=== PATIENT | male | born 1985 | race African-American/Black ===

== ENCOUNTER 2019-07-03 13:13 | Emergency (ER) | payer OTHER ==
--- NOTE | 2019-07-03 16:04 | EDM.PDOC ---
ED HPI GENERAL MEDICAL PROBLEM - General Chief Complaint: Cardiovascular Problem Stated Complaint: RACING HEART Time Seen by Provider: 07/03/19 13:22 Source of Information: Reports: Patient History Limitations: Reports: No Limitations - History of Present Illness INITIAL COMMENTS - FREE TEXT/NARRATIVE: The patient presents with palpitations. This happened today. He had just drank a smoothy when this happened and he got lightheaded. He has no chest pain or shortness of breath. The palpitations are gone now. He has no fever, chills, cough, congestion, runny nose, abdominal pain, nausea or vomiting. He does not drink much caffeine. He does take a male enhancement supplement called testo. It has yohimbe in it and that can cause a rapid heart rate. Onset: Sudden Duration: Minutes: Improves with: Reports: None Worsens with: Reports: None Associated Symptoms: Reports: No Other Symptoms - Related Data Allergies Allergy/AdvReac Type Severity Reaction Status Date / Time No Known Allergies Allergy Verified 07/03/19 13:23 Home Meds: Home Meds . [No Known Home Meds] 07/03/19 [History] Past Medical History - Past Health History Medical/Surgical History: Denies Medical/Surgical History - Infectious Disease History Infectious Disease History: Reports: None Social & Family History - Tobacco Use Smoking Status *Q: Never Smoker - Caffeine Use Caffeine Use: Reports: None - Recreational Drug Use Recreational Drug Use: No ED ROS GENERAL - Review of Systems Review Of Systems: See Below Constitutional: Reports: No Symptoms HEENT: Reports: No Symptoms Respiratory: Reports: No Symptoms Cardiovascular: Reports: Palpitations. Denies: Chest Pain Endocrine: Reports: No Symptoms GI/Abdominal: Reports: No Symptoms : Reports: No Symptoms Musculoskeletal: Reports: No Symptoms Skin: Reports: No Symptoms ED EXAM, GENERAL - Physical Exam Exam: See Below Exam Limited By: No Limitations General Appearance: Alert, No Apparent Distress Ears: Normal External Exam Nose: Normal Inspection Throat/Mouth: Normal Inspection Neck: Normal Inspection Respiratory/Chest: No Respiratory Distress, Lungs Clear, Normal Breath Sounds Cardiovascular: Regular Rate, Rhythm, No Edema, No Murmur GI/Abdominal: Soft, Non-Tender, No Organomegaly, No Mass Back Exam: Normal Inspection Extremities: Normal Inspection EKG INTERPRETATION EKG Date: 07/03/19 Time: 13:26 Rhythm: NSR Rate (Beats/Min): 67 Dougherty: Normal P-Wave: Present QRS: Normal ST-T: Normal QT: Normal Course - Vital Signs Last Recorded V/S: Last Vital Signs Temp 97.6 F 07/03/19 13:19 Pulse 70 07/03/19 13:19 Resp 16 07/03/19 13:19 BP 139/77 07/03/19 13:19 Pulse Ox 100 07/03/19 13:19 - Orders/Labs/Meds Orders: Active Orders 24 hr Category Date Time Status Cardiac Monitoring [RC] . DIRECTED Care 07/03/19 13:52 Active EKG Documentation Completion [RC] ASDIRECTED Care 07/03/19 13:26 Active EKG 12 Lead [EK] Stat Ther 07/03/19 13:26 Ordered Labs: Laboratory Tests 07/03/19 07/03/19 Range/Units 13:52 14:15 WBC 12.01 H (4.23-9.07) K/mm3 RBC 5.19 (4.63-6.08) M/mm3 Hgb 14.7 (13.7-17.5) gm/dl Hct 43.1 (40.1-51.0) % MCV 83.0 (79.0-92.2) fl MCH 28.3 (25.7-32.2) pg MCHC 34.1 (32.2-35.5) g/dl RDW Std Deviation 39.3 (35.1-43.9) fL Plt Count 242 (163-337) K/mm3 MPV 10.1 (9.4-12.3) fl Neut % (Auto) 77.4 H (34.0-67.9) % Lymph % (Auto) 10.8 L (21.8-53.1) % Cherry % (Auto) 11.3 (5.3-12.2) % Eos % (Auto) 0.2 L (0.8-7.0) Baso % (Auto) 0.1 (0.1-1.2) % Neut # (Auto) 9.28 H (1.78-5.38) K/mm3 Lymph # (Auto) 1.30 L (1.32-3.57) K/mm3 Cherry # (Auto) 1.36 H (0.30-0.82) K/mm3 Eos # (Auto) 0.03 L (0.04-0.54) K/mm3 Baso # (Auto) 0.01 (0.01-0.08) K/mm3 Manual Slide Review Normal smear Sodium 141 (136-145) mEq/L Potassium 4.0 (3.5-5.1) mEq/L Chloride 103 (98-107) mEq/L Carbon Dioxide 29 (21-32) mEq/L Anion Gap 13.0 (5-15) BUN 15 (7-18) mg/dL Creatinine 1.2 (0.7-1.3) mg/dL Est Cr Clr Drug Dosing 74.03 mL/min Estimated GFR (MDRD) > 60 (>60) mL/min BUN/Creatinine Ratio 12.5 L (14-18) Glucose 82 (74-106) mg/dL Calcium 9.6 (8.5-10.1) mg/dL Total Bilirubin 0.3 (0.2-1.0) mg/dL AST 30 (15-37) U/L ALT 39 (16-63) U/L Alkaline Phosphatase 45 L (46-116) U/L Troponin I 0.032 (0.00-0.056) ng/mL Total Protein 8.4 H (6.4-8.2) g/dl Albumin 4.3 (3.4-5.0) g/dl Globulin 4.1 gm/dL Albumin/Globulin Ratio 1.1 (1-2) TSH 3rd Generation 1.916 (0.358-3.74) uIU/mL - Re-Assessments/Exams Free Text/Narrative Re-Assessment/Exam: 07/03/19 16:07 I ordered an EKG and labs. His EKG shows a NSR with no acute changes. His WBC was elevated at 12.01. His troponin was negative. His TSH was normal. I will have him stop the supplement and see if that helps. Departure - Departure Time of Disposition: 16:20 Disposition: Home, Self-Care 01 Condition: Good Clinical Impression: Palpitations Referrals: PCP,None [Primary Care Provider] - Angle De León MD [Physician] - 1 Week Forms: ED Department Discharge Additional Instructions: Avoid the supplement you were taking. It contains yohimbe which can cause palpitations and irregular heart beat. Drink plenty of fluids. Please return if you are worse. Sepsis Event Note - Evaluation Sepsis Screening Result: No Definite Risk - Focused Exam Vital Signs: Vital Signs Temp Pulse Resp BP Pulse Ox 07/03/19 13:19 97.6 F 70 16 139/77 100 Date Exam was Performed: 07/03/19 Time Exam was Performed: 16:17 - My Orders Last 24 Hours: My Active Orders 07/03/19 13:26 EKG Documentation Completion [RC] ASDIRECTED EKG 12 Lead [EK] Stat 07/03/19 13:52 Cardiac Monitoring [RC] . DIRECTED - Assessment/Plan Last 24 Hours: My Active Orders 07/03/19 13:26 EKG Documentation Completion [RC] ASDIRECTED EKG 12 Lead [EK] Stat 07/03/19 13:52 Cardiac Monitoring [RC] . DIRECTED
== END 2019-07-03 16:28 | disposition home or self-care (01) ==
LOC: JD.ED 13:13
DX: R00.2 Palpitations (principal); T50.995A Adverse effect of other drugs, medicaments and biological substances, initial encounter; D72.829 Elevated white blood cell count, unspecified
CPT/HCPCS: 36415; 80053; 84443; 84484; 85025; 93005; 93010; 99283; 99285-25